=== PATIENT | male | born 1985 | race Two or more races ===

== ENCOUNTER 2024-12-03 10:44 | Outpatient (REF) | payer MEDICAID, SELFPAY ==
[2024-12-03 11:51] LABS: Hematocrit 45.6 % (42.0-52.0); Hemoglobin 15.1 g/dl (14.0-18.0); Mean Corpuscular HGB Conc 33.1 g/dl (31.0-36.0); Mean Corpuscular Hemoglobin 28.5 pg (27.0-33.0); Mean Platelet Volume 9.9 fL (9.4-12.4); Platelet Count 278 X10*3/uL (160-400); Red Cell Distribution Width 12.4 % (11.0-16.0)
[2024-12-03 12:23] LABS: Alanine Aminotransferase 32 U/L (0-40); Albumin Level 4.5 g/dL (3.5-5.0); Alkaline Phosphatase 85 U/L (39-117); Anion Gap 11 (12-20); Aspartate Amino Transferase 26 U/L (5-37); Bilirubin Direct 0.2 mg/dL (0.0-0.5); Bilirubin Total 0.4 mg/dL (0.0-1.0); Blood Urea Nitrogen 18 mg/dL (9-16); Calcium 9.6 mg/dL (8.4-10.2); Carbon Dioxide 26 mmol/L (22-29); Chloride 108 mmol/L (96-108); Cholesterol 254 mg/dL (<200); Estimated Glomerular Filt Rate > 60; Glucose Random 100 mg/dL (60-115); HDL Cholesterol 36 mg/dL (>40); LDL Cholesterol Calculated 185 mg/dL (<100); Potassium 4.7 mmol/L (3.3-5.1); Sodium 140 mmol/L (135-145); Total Protein 7.9 g/dL (6.5-8.0); Triglycerides 165 mg/dL (<150)
[2024-12-03 12:30] LABS: Estimated Average Glucose 108 mg/dL; Hemoglobin A1c % 5.4 % (<6.0)
[2024-12-03 12:31] LABS: HBc Num1 0.14 S/CO (0.00-0.79); HBsAGNum1 0.34 S/CO (0.00-0.99); HIV AB/AG Nonreactive (Nonreactive); Hepatitis B Core Antibody Nonreactive (Nonreactive); Hepatitis B Surface Antigen Negative (Negative); ~HepC Num1 0.11 S/CO (0.00-0.79); ~Hepatitis B Surface Antibody NONREACTIVE (Nonreactive); ~Hepatitis C Antibody Nonreactive (Nonreactive)
[2024-12-03 12:34] LABS: Hepatitis A Antibody IgG Nonreactive (Nonreactive); ~Hepatitis A Antibody IgG 0.38 S/CO (0.00-0.99)
[2024-12-03 12:40] LABS: Free T4 (Free Thyroxine) 0.99 ng/dL (0.71-1.85); Thyroid Stimulating Hormone 1.09 uIU/mL (0.32-4.0); Vitamin D 25-OH Total 23.1 ng/mL (>30)
[2024-12-04 13:33] LABS: CT PCR NOT DETECTED (Not Detect.); NG PCR NOT DETECTED (Not Detect.)
[2024-12-04 14:38] LABS: RPR Rapid Plasma Reagin NON-REACTIVE (NON-REACTIVE)
== END 2024-12-03 10:45 | disposition home or self-care (01) ==
LOC: HO.HHCL 10:44
PROVIDERS: Visit Provider Family Medicine
DX: M54.9 Dorsalgia, unspecified (principal); Z68.29 Body mass index [BMI] 29.0-29.9, adult; S22.069A Unspecified fracture of T7-T8 vertebra, initial encounter for closed fracture
CPT/HCPCS: 80048; 80061; 80076; 82306; 83036; 84439; 84443; 85027; 86592; 86704; 86706; 86708; 86803; 87340; 87389; 87491; 87591

== ENCOUNTER 2024-12-03 14:27 | Outpatient (REF) | payer MEDICAID, SELFPAY | END 2024-12-03 14:28 | disposition home or self-care (01) | LOC: HO.HOSX 14:27 | PROVIDERS: Visit Provider Physician Assistant | DX: Z13.89 Encounter for screening for other disorder (principal) ==

== ENCOUNTER 2024-12-04 13:20 | Outpatient (AMB) | payer OTHER, SELFPAY ==
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
[2024-12-04 13:58] VITALS: BMI 29.7
== END 2024-12-04 15:19 | disposition home or self-care (01) ==
PROVIDERS: Referring Provider Family Medicine; Visit Provider Physician Assistant
DX: M54.9 Dorsalgia, unspecified (principal)
CPT/HCPCS: 99204

== ENCOUNTER → 2024-12-04 13:25 | Outpatient (BNV) | payer OTHER, SELFPAY | PROVIDERS: Visit Provider Radiology Diagnostic Radiology | DX: M54.9 Dorsalgia, unspecified (principal) | CPT/HCPCS: 72070; 72110 ==

== ENCOUNTER 2024-12-04 14:27 | Outpatient (REF) | payer OTHER, SELFPAY ==
--- NOTE | ~2024-12-04 | XR_ITS ---
EXAMINATION: XR THORACIC SPINE CLINICAL INFORMATION: M54.9 - Dorsalgia, unspecified COMPARISON: None available. TECHNIQUE: 3 views of the thoracic spine were obtained. FINDINGS: No acute cortical disruption or malalignment. No lytic or blastic lesions. XR/XR thoracic spine 2V IMPRESSION: Normal exam. Electronically signed by: Lakhwinder Alcaraz MD 12/07/2024 03:41 PM EDT
--- NOTE | ~2024-12-04 | XR_ITS ---
EXAMINATION: X-ray lumbar spine 4 views. CLINICAL INFORMATION: Low back pain. TECHNIQUE: 4 views of the lumbar spine with flexion and extension position.. COMPARISON: None FINDINGS: There is superior endplate compression deformity representing 30% volume loss at T12. No gross malalignment no lytic or blastic lesions. Spina bifida occulta S1. XR/XR lumbar spine 4V min IMPRESSION: Probable old superior endplate compression deformity at T12. No gross listhesis or instability. Electronically signed by: Lakhwinder Alcaraz MD 12/07/2024 03:48 PM EDT
== END 2024-12-04 14:28 | disposition home or self-care (01) ==
LOC: HO.HOSX 14:27
PROVIDERS: Visit Provider Physician Assistant
DX: M54.9 Dorsalgia, unspecified (principal)
CPT/HCPCS: 72070; 72110; 99202

== ENCOUNTER 2024-12-25 08:49 | Outpatient (RCR) | payer OTHER, SELFPAY ==
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
--- NOTE | 2025-01-08 11:19 | MHC.PT.DC ---
[facility] [place] Office [place] Office [place] Office [address] Mainor Nieto [address] [facility] [phone] F: [phone] F: [phone] F: [phone] F: [phone] Physical Therapy Discharge Report Diagnosis: BACK PAIN-> T 7 AND T12 COMPRESSION FX-> PASSIVE PAIN CONTROL MEASURES, AVOID LIFTING/BENDING/TWISTING,ETC Date of Surgery: DOI 11/26/24 Date of Evaluation: 12/16/24 Date of Discharge: 01/08/25 Treatments to Date: 2 Cancellations to Date: 6 No Shows to Date: 2 Discharge Status: Visit Non-compliance Discharge Summary: NEIL IS DISCHARGED THIS DATE PER THE PT DEPT ATTENDANCE POLICY. Electronically signed by: YUAN MAGAÑA, PT Please sign and return to therapist. Thank you for your referral.
== END 2025-01-08 11:20 | disposition home or self-care (01) ==
LOC: HO.PT 08:49
PROVIDERS: PCP Family Medicine; Visit Provider Physician Assistant
DX: M54.9 Dorsalgia, unspecified (principal); S22.089D Unspecified fracture of T11-T12 vertebra, subsequent encounter for fracture with routine healing
CPT/HCPCS: 97014; 97110; 97162; 97535

== ENCOUNTER → 2025-02-19 17:35 | Outpatient (BNV) | payer OTHER, SELFPAY | PROVIDERS: PCP Family Medicine; Visit Provider Radiology Diagnostic Radiology | DX: M54.6 Pain in thoracic spine (principal) | CPT/HCPCS: 72146 ==

== ENCOUNTER 2025-02-19 17:36 | Outpatient (REF) | payer OTHER, SELFPAY ==
--- NOTE | ~2025-02-19 | MR_ITS ---
CLINICAL HISTORY: M54.9 - Dorsalgia, unspecified --- Additional Notes or Special Instructions: fall, T7 compression fx on CT MR thoracic spine without gadolinium Comparison: None Findings: Normal alignment without acute fracture. Old mild compression fracture of the T7 superior endplate. T10 vertebral body hemangioma. No bone marrow infiltration. Disc dehydration at some levels. Unremarkable signal intensity of the visualized cord. Up to 6 mm posterior epidural fat thickening most conspicuous from T4-T7 levels without significant central canal compromise. T11/T12: Mild disc bulge mildly flattens the neighboring cord without causing significant central canal compromise. No evidence of significant central canal or neural foraminal stenosis. Unremarkable paravertebral soft tissues. IMPRESSION: No evidence of significant central canal or neural foraminal stenosis. Old mild compression fracture of the T7 superior endplate. This document has been electronically signed by: Isabell Santos MD on 02/23/2025 12:05:49
== END 2025-02-19 17:37 | disposition home or self-care (01) ==
LOC: HO.MRI 17:36
PROVIDERS: PCP Family Medicine; Visit Provider Physician Assistant
DX: M54.9 Dorsalgia, unspecified (principal)
CPT/HCPCS: 72146

== ENCOUNTER 2025-05-10 14:05 | Outpatient (AMB) | payer OTHER, SELFPAY ==
--- NOTE | 2025-05-10 14:41 | HO.SPINEOV ---
Intake Visit Reasons: F/u after PT and MRI Intake Note: Mr. Davis is here today following up after PT and MRI. Store Protection Specialist Required: No Allergies No Known Allergies Allergy (Verified 12/04/24 14:16) Assessment & Plan Assessment & Plan (1) Back pain: Code(s): M54.9 - Dorsalgia, unspecified Category: Medical (2) Thoracic compression fracture: Code(s): S22.000A - Wedge compression fracture of unspecified thoracic vertebra, initial encounter for closed fracture Category: Medical Plan Mr Davis came back for evaluation. I saw him earlier in the year after he sustained a fall and was having back pain. He had a T7 compression fracture at that time. We also suspect that he may have had a mild T12 compression deformity as well. He ultimately underwent physical therapy and has had some improvement in the back pain but still continues to have pain along the upper thoracic, lower thoracic and lower lumbar region. I sent him for x-rays today, and these show no evidence of new fractures. Everything seems to have healed okay. His previous MRI showed that the fracture of the thoracic spine had healed as well. Unfortunately I do not have an explanation for him as to what the pain could be coming from. I told him that he has a few options, 1 of which is to see 1 of our pain management colleagues for evaluation, and is possible he may be a candidate for some kind of trigger point injection, or epidural injection to help with the back pain. I do not think he needs any surgical intervention. Total amount of time spent in this visit was 20 minutes in discussion of symptoms, previous thoracic MRI imaging results and subsequent plan of care Farhan Webb MD,PhD [facility] Orders: Orders XR thoracic spine 2V Today S22.000A - Wedge compression fracture of unspecified thoracic vertebra, initial encounter for closed fracture XR lumbar spine 4V min Today M54.9 - Dorsalgia, unspecified Referrals Pain Management Referral M54.9 - Dorsalgia, unspecified, S22.000A - Wedge compression fracture of unspecified thoracic vertebra, initial encounter for closed fracture Coding Level of Care Code Est Pt Level 3 (96941) Diagnoses Back pain M54.9 Thoracic compression fracture S22.000A
== END 2025-05-10 15:28 | disposition home or self-care (01) ==
LOC: HO.HNS 14:05
PROVIDERS: PCP Family Medicine; Visit Provider Physician Assistant
DX: M54.9 Dorsalgia, unspecified (principal); S22.000A Wedge compression fracture of unspecified thoracic vertebra, initial encounter for closed fracture
CPT/HCPCS: 99213

== ENCOUNTER 2025-05-10 14:05 | Outpatient (REF) | payer OTHER, SELFPAY ==
--- NOTE | ~2025-05-10 | XR_ITS ---
EXAMINATION: XR THORACIC SPINE CLINICAL INFORMATION: S22.000A - Wedge compression fracture of unspecified thoracic vertebra, ... COMPARISON: December 04, 2024. TECHNIQUE: AP and lateral views FINDINGS: No acute cortical disruption. No gross malalignment. No lytic or blastic lesions. XR/XR thoracic spine 2V IMPRESSION: No acute fracture or listhesis. Negative exam. Electronically signed by: Lakhwinder Alcaraz MD 05/10/2025 03:47 PM EDT
--- NOTE | ~2025-05-10 | XR_ITS ---
EXAMINATION: XR LUMBOSACRAL SPINE CLINICAL INFORMATION: M54.9 - Dorsalgia, unspecified COMPARISON: December 04, 2024 TECHNIQUE: AP, lateral views in neutral flexion and extension position. FINDINGS: Old superior endplate compression deformity at T12. Multilevel endplate sclerosis. No acute cortical disruption or gross malalignment. No gross malalignment during flexion and/or extension position. No lytic or blastic lesions. XR/XR lumbar spine 4V min IMPRESSION: Multilevel thoracolumbar spondylosis without acute fracture or gross listhesis or instability. Electronically signed by: Lakhwinder Alcaraz MD 05/10/2025 03:49 PM EDT
== END 2025-05-10 14:06 | disposition home or self-care (01) ==
LOC: HO.HOSX 14:05
PROVIDERS: PCP Family Medicine; Visit Provider Physician Assistant
DX: S22.000A Wedge compression fracture of unspecified thoracic vertebra, initial encounter for closed fracture (principal); M54.6 Pain in thoracic spine; M54.50 Low back pain, unspecified; X58.XXXA Exposure to other specified factors, initial encounter
CPT/HCPCS: 72070; 72110; 99212

== ENCOUNTER → 2025-05-10 14:59 | Outpatient (BNV) | payer OTHER, SELFPAY | PROVIDERS: PCP Family Medicine; Visit Provider Radiology Diagnostic Radiology | DX: M47.815 Spondylosis without myelopathy or radiculopathy, thoracolumbar region (principal); S22.000A Wedge compression fracture of unspecified thoracic vertebra, initial encounter for closed fracture | CPT/HCPCS: 72070; 72110 ==

== ENCOUNTER 2025-06-11 10:05 | Outpatient (AMB) | payer OTHER, SELFPAY ==
[2025-06-11 10:11] VITALS: BP 102/69; PULSE 75; RESP 16; O2SAT 97
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
== END 2025-06-11 10:43 | disposition home or self-care (01) ==
LOC: HO.PMC 10:06
PROVIDERS: PCP Family Medicine; Visit Provider Internal Medicine
DX: S22.060A Wedge compression fracture of T7-T8 vertebra, initial encounter for closed fracture (principal)
CPT/HCPCS: 99204

== ENCOUNTER → 2025-06-11 10:05 | Outpatient (BNVA) | payer OTHER, SELFPAY | PROVIDERS: PCP Family Medicine; Visit Provider Internal Medicine | DX: S22.000A Wedge compression fracture of unspecified thoracic vertebra, initial encounter for closed fracture (principal); K21.9 Gastro-esophageal reflux disease without esophagitis | CPT/HCPCS: 99202 ==

== ENCOUNTER 2025-09-09 13:39 | Outpatient (REF) | payer OTHER, SELFPAY ==
--- NOTE | ~2025-09-09 | XR_ITS ---
EXAMINATION: XR RIBS, RIGHT CLINICAL INFORMATION: burning chest pain COMPARISON: None available. TECHNIQUE: PA view chest. Oblique views both hemithoraces. FINDINGS: No consolidation, pleural effusion or pneumothorax. No hyperinflation. Cardiomediastinal silhouette size is normal. No acute displaced/deformity in the ribs. XR/XR ribs RT min 3V w CXR1V IMPRESSION: No acute rib fracture. No acute airspace disease. Negative x-ray. Electronically signed by: Lakhwinder Alcaraz MD 09/09/2025 02:24 PM ANU
== END 2025-09-09 13:40 | disposition home or self-care (01) ==
LOC: HO.HHCX 13:39
PROVIDERS: PCP Family Medicine; Visit Provider Family Medicine
DX: R07.9 Chest pain, unspecified (principal)
CPT/HCPCS: 71101

== ENCOUNTER → 2025-09-09 13:46 | Outpatient (BNV) | payer OTHER, SELFPAY | PROVIDERS: PCP Family Medicine; Visit Provider Radiology Diagnostic Radiology | DX: R07.89 Other chest pain (principal) | CPT/HCPCS: 71101 ==